=== PATIENT | female | born 1990 | race Caucasian/White ===

== ENCOUNTER 2018-03-25 15:04 | Observation (INO) | payer OTHER ==
[~2018-03-25] VITALS: Ht 154.9 cm; Wt 97.1 kg
[2018-03-25] MEDS ORDERED: FERR325E14 PO (15:20)
[2018-03-25] MEDS ORDERED: PREN-380 PO (15:20)
[2018-03-25 15:53] VITALS: BP 109/51
[2018-03-25] MEDS ORDERED: AMPICILLIN 2,000 MG in NACL 0.9% MINI-BAG PLUS 100 ML IV SCH (17:30)
[2018-03-25] MEDS ORDERED: AMPICILLIN 1,000 MG in NACL 0.9% MINI-BAG PLUS 50 ML IV SCH (20:00)
== END 2018-03-25 17:15 | disposition home or self-care (01) ==
LOC: MLD 15:04
PROVIDERS: ADMIT Obstetrics & Gynecology; ATTEND Obstetrics & Gynecology
DX: O26.893 Other specified pregnancy related conditions, third trimester (principal); R10.9 Unspecified abdominal pain; Z3A.34 34 weeks gestation of pregnancy
CPT/HCPCS: 59025; 76805; 81000; G0378; Q0092

== ENCOUNTER 2018-04-14 19:29 | Inpatient (IN) | payer OTHER ==
[~2018-04-14] VITALS: Ht 157.5 cm; Wt 98.4 kg
[~2018-04-14 19:29] MED LIST: FERR325E14 PO; PREN-380 PO
[2018-04-14] MEDS ORDERED: TERBUTALINE 1 MG/ML VIAL SUBQ SCH (20:20)
[2018-04-14] MEDS ORDERED: TERBUTALINE 1 MG/ML VIAL SUBQ ONE (20:24)
[2018-04-14 21:35] VITALS: BP 118/66
[2018-04-14] MEDS ORDERED: CITRIC ACID/SODIUM CITRATE 30 ML UDC PO ONE (21:55)
[2018-04-14 22:30] LABS: BASOPHILS % (AUTO) 0.1 % (0.0-2.0); EOSINOPHILS % (AUTO) 0.1 % (0.0-4.0); HEMATOCRIT 36.7 % (36-48); HEMOGLOBIN 11.6 g/dL (12.0-16.0); LYMPHOCYTES # (AUTO) 1.3 K/uL (2.5-16.5); MEAN CORPUSCULAR HEMOGLOBIN 25 pg (27-31); MEAN CORPUSCULAR HGB CONC 32 g/dL (33-37); MEAN CORPUSCULAR VOLUME 77.8 fL (80-94); MONOCYTES # (AUTO) 1.8 K/uL (0.8-1.0); MONOCYTES % (AUTO) 10.3 % (1.7-9.3); NEUTROPHILS # (AUTO) 14.2 K/uL (1.8-7.7); NEUTROPHILS % (AUTO) 81.8 % (42.2-75.2); PLATELET COUNT (AUTO) 207 K/uL (140-450); RED BLOOD CELL COUNT(AUTO) 4.72 MIL/uL (4.20-5.40)
[2018-04-14 22:52] LABS: WHITE BLOOD COUNT (AUTO) 17.3 K/uL (4.8-10.8)
[2018-04-14 22:53] LABS: LYMPHOCYTES % (AUTO) 7.7 % (20.5-51.1)
[2018-04-14 22:57] LABS: APPEARANCE,URINE CLEAR (CLEAR); BILIRUBIN,URINE NEGATIVE (NEGATIVE); BLOOD, URINE TRACE-I (NEGATIVE); COLOR,URINE YELLOW (YELLOW); LEUKOCYTE ESTERASE ,URINE TRACE (NEGATIVE); NITRITE, URINE NEGATIVE (NEGATIVE); UGLUCOSE NEGATIVE (NEGATIVE)
[2018-04-14] MEDS: LACTATED RINGERS 1,000 ML IV SCH (23:00)
[2018-04-14 23:15] LABS: CALCIUM OXALATE CRYSTALS,UR 30-50 /HPF (None Seen); RBC,URINE 3-10 (FEW) /HPF (0-5)
[2018-04-15] MEDS: LACTATED RINGERS 1,000 ML IV SCH (06:09)
--- NOTE | 2018-04-15 07:43 | NUR ---
PATIENT HAS BEEN SCREENED AND CATEGORIZED LOW NUTRITION RISK. PATIENT WILL BE SEEN WITHIN 7 DAYS OF ADMISSION. 04/21/[address]
[2018-04-15] MEDS ORDERED: MIDAZOLAM 2 MG/2 ML VIAL ONE (11:13)
[2018-04-15] MEDS ORDERED: BUPIVACAINE/DEXT 0.75% SPINAL 2 ML AMP INJ ONE (11:14)
[2018-04-15] MEDS ORDERED: MORPHINE PRES FREE 10 MG/10 ML AMP IV ONE (11:14)
[2018-04-15] MEDS ORDERED: diphenhydrAMINE 50 MG/ML VIAL ONE (13:11)
[2018-04-15] MEDS ORDERED: ONDANSETRON 4 MG/2 ML VIAL ONE (13:11)
[2018-04-15] MEDS ORDERED: OXYTOCIN 20 UNITS/LR PREMIX 1,000 ML IV ONE ×2 (13:12→17:58)
[2018-04-15] MEDS ORDERED: KETOROLAC 30 MG/ML VIAL IVP PRN (14:10)
[2018-04-15] MEDS ORDERED: MEASLES, MUMPS, AND RUBELLA 1 VIAL SQVAC PRN (14:10)
[2018-04-15] MEDS ORDERED: HYDROmorphone 1 MG/ML AMP IVP PRN (14:10)
[2018-04-15] MEDS ORDERED: OXYTOCIN 20 UNITS in LACTATED RINGERS 1,000 ML IV SCH (14:10)
[2018-04-16] MEDS ORDERED: OXYTOCIN 20 UNITS/LR PREMIX 1,000 ML IV ONE (02:23)
[2018-04-16 08:51] LABS: BASOPHILS % (AUTO) 0.2 % (0.0-2.0); EOSINOPHILS % (AUTO) 0.2 % (0.0-4.0); HEMATOCRIT 32.4 % (36-48); HEMOGLOBIN 10.3 g/dL (12.0-16.0); LYMPHOCYTES # (AUTO) 1.3 K/uL (2.5-16.5); MEAN CORPUSCULAR HEMOGLOBIN 25 pg (27-31); MEAN CORPUSCULAR HGB CONC 32 g/dL (33-37); MONOCYTES # (AUTO) 1.4 K/uL (0.8-1.0); NEUTROPHILS # (AUTO) 10.7 K/uL (1.8-7.7); PLATELET COUNT (AUTO) 205 K/uL (140-450); RED BLOOD CELL COUNT(AUTO) 4.15 MIL/uL (4.20-5.40); RED CELL DISTRIBUTION WIDTH 16.5 % (11.6-13.7); WHITE BLOOD COUNT (AUTO) 13.4 K/uL (4.8-10.8)
[2018-04-16] MEDS ORDERED: BISACODYL 5 MG TABEC PO SCH (09:00)
[2018-04-16 09:12] LABS: LYMPHOCYTES % (AUTO) 9.6 % (20.5-51.1); MONOCYTES % (AUTO) 10.3 % (1.7-9.3); NEUTROPHILS % (AUTO) 79.7 % (42.2-75.2)
[2018-04-16] MEDS: ACETAMINOPHEN 325 MG TAB PO PRN (22:13)
[2018-04-17] MEDS: ACETAMINOPHEN 325 MG TAB PO PRN (04:17)
[2018-04-17] MEDS ORDERED: SODIUM PHOSPHATE 118 ML ENEM RC PRN (08:00)
[2018-04-17] MEDS ORDERED: IBUPROFEN 600 MG TAB PO PRN (08:00)
[2018-04-17] MEDS: BISACODYL 5 MG TABEC PO SCH (08:29)
[2018-04-17] MEDS: SIMETHICONE 80 MG TAB.CHEW PO SCH ×3 (08:30→17:47)
[2018-04-17] MEDS: DOCUSATE SODIUM 100 MG GELCAP PO SCH (08:51)
[2018-04-18] MEDS: BISACODYL 5 MG TABEC PO SCH (08:56)
[2018-04-18] MEDS: DOCUSATE SODIUM 100 MG GELCAP PO SCH (08:57)
[2018-04-18] MEDS: SIMETHICONE 80 MG TAB.CHEW PO SCH ×3 (08:57→17:48)
[2018-04-19] MEDS: DOCUSATE SODIUM 100 MG GELCAP PO SCH (08:15)
[2018-04-19] MEDS: BISACODYL 5 MG TABEC PO SCH (08:16)
[2018-04-19] MEDS: SIMETHICONE 80 MG TAB.CHEW PO SCH (08:16)
== END 2018-04-19 14:32 | disposition home or self-care (01) | DRG 540 ==
LOC: MLD 19:29 → MFCC 04-15 14:00
PROVIDERS: ADMIT Obstetrics & Gynecology; ATTEND Obstetrics & Gynecology
PROC: 10D00Z1 Extraction of Products of Conception, Low, Open Approach (ICD-10-PCS; principal; 2018-04-15)
DX: O34.211 Maternal care for low transverse scar from previous cesarean delivery (principal); Z37.0 Single live birth; Z3A.38 38 weeks gestation of pregnancy
CPT/HCPCS: 36415; 81001; 85025; 86592; 86886; 86900; 86901; 87081; 87086; J0690; J1200; J2250; J2270; J2405; J2590; J3105; J3490; J7060; J7120

== ENCOUNTER 2019-09-19 10:08 | Observation (INO) | payer OTHER ==
[~2019-09-19] VITALS: Ht 160 cm; Wt 99.8 kg
[2019-09-19 11:35] VITALS: BP 123/58
== END 2019-09-19 13:55 | disposition home or self-care (01) ==
LOC: MLD 10:08
PROVIDERS: ADMIT Obstetrics & Gynecology; ATTEND Obstetrics & Gynecology
DX: O26.893 Other specified pregnancy related conditions, third trimester (principal); R10.9 Unspecified abdominal pain; O34.219 Maternal care for unspecified type scar from previous cesarean delivery; Z3A.37 37 weeks gestation of pregnancy
CPT/HCPCS: 59025; 81000; G0378